=== PATIENT | male | born 1960 | race Asian ===

== ENCOUNTER 2018-04-25 10:35 | Day surgery (SDC) | payer OTHER ==
[~2018-04-25 10:35] MED LIST: DEXAMETHASONE 4 MG/ML 1 ML INJ; LIDOCAINE 2% (SDV) 5 ML INJ; ONDANSETRON 4 MG INJ; PHENYLephrine (100 MCG/ML) 5ML SYG
[2018-04-25] MEDS ORDERED: LACTATED RINGER'S 1,000 ML IV* (11:00)
[2018-04-25] MEDS: TROPICAMIDE 1% 3 ML OPH OPER (11:25)
[2018-04-25] MEDS: PHENYLephrine 2.5% 15 ML OPH OPER (11:25)
[2018-04-25] MEDS: MOXIFLOXACIN 0.5% 3 ML OPH OPER (11:25)
[2018-04-25] MEDS: CYCLOPENTOLATE 1% 2 ML OPH OPER (11:25)
[2018-04-25] MEDS: DICLOFENAC 0.1% 2.5 ML OPH OPER (11:26)
[2018-04-25] MEDS: SOD CHLORIDE 0.9% 1,000 ML IV (11:26)
[2018-04-25] MEDS ORDERED: FENTAnyl 50 MCG/ML VIAL (12:09)
[2018-04-25] MEDS ORDERED: ROCURONIUM 50 MG INJ (12:09)
[2018-04-25] MEDS ORDERED: PROPOFOL 20 ML (12:09)
[2018-04-25] MEDS ORDERED: SUGAMMADEX SODIUM 200 MG/2 ML VIAL IV (12:10)
[2018-04-25] MEDS ORDERED: EPINEPHrine 1 MG INJ (12:13)
[2018-04-25] MEDS ORDERED: LIDOCAINE 1% (MPF) 10 ML INJ (12:13)
[2018-04-25] MEDS: LIDOCAINE 1% (MPF) 10 ML INJ INJ (12:45)
[2018-04-25] MEDS ORDERED: TRYPAN BLUE 0.5 ML SYG IO (12:51)
[2018-04-25] MEDS: TETRACAINE 0.5% 4 ML OPH OPER (13:00)
[2018-04-25] MEDS ORDERED: TETRACAINE 0.5% 4 ML OPH (13:18)
[2018-04-25] MEDS ORDERED: TOBRAMYCIN 0.3% 3.5 GM OPH OINT ×2 (13:27→13:28)
[2018-04-25] MEDS ORDERED: TOBRAMYCIN/DEXAMETH 3.5 GM OPH OINT (13:32)
[2018-04-25] MEDS: TOBRAMYCIN/DEXAMETH 3.5 GM OPH OINT LEFT EYE (13:41)
[2018-04-25] MEDS ORDERED: MOXIFLOXACIN 0.5% 3 ML OPH (13:52)
[2018-04-25] MEDS ORDERED: INSULIN ASPART [NOVOLOG] 3 ML PEN SC (14:00)
[2018-04-25] MEDS ORDERED: OXYCODONE/ACETAMINOPHEN (5/325) TAB PO ×2 (14:00)
[2018-04-25] MEDS ORDERED: FENTAnyl 50 MCG/ML VIAL IV ×3 (14:00)
[2018-04-25] MEDS ORDERED: ONDANSETRON 4 MG INJ IV (14:00)
[2018-04-25] MEDS ORDERED: ALBUTEROL 0.083% (NEB) 2.5 MG/3 ML AMP HHN (14:00)
[2018-04-25] MEDS ORDERED: LABETALOL HCL 20MG INJ IV (14:00)
[2018-04-25] MEDS ORDERED: MIDAZOLAM 1 MG/ML 2 ML INJ IV (14:00)
[2018-04-25] MEDS ORDERED: GLUCOSE GEL 15 GRAM TUBE PO ×2 (14:00)
[2018-04-25] MEDS ORDERED: GLUCOSE GEL 15 GRAM TUBE BUCCAL (14:00)
[2018-04-25] MEDS ORDERED: DIPHENHYDRAMINE 50 MG INJ IV (14:00)
[2018-04-25] MEDS ORDERED: MEPERIDINE 25 MG INJ IV (14:00)
[2018-04-25] MEDS ORDERED: KETOROLAC 30 MG INJ IV (14:00)
[2018-04-25] MEDS ORDERED: hydrALAzine 20 MG INJ IV (14:00)
[2018-04-25] MEDS ORDERED: HYDROmorphONE 1 MG/5 ML IV SYRINGE IV ×3 (14:00)
[2018-04-25] MEDS ORDERED: GLUCAGON 1 MG INJ IM (14:00)
[2018-04-25] MEDS ORDERED: EPHEDrine SULFATE 50 MG/5 ML SYG IV (14:00)
[2018-04-25] MEDS ORDERED: DEXTROSE 50% 50 ML SYRINGE IV ×2 (14:00)
== END 2018-04-25 15:28 | disposition home or self-care (01) ==
LOC: SDS 10:35
DX: H25.89 Other age-related cataract (principal); Z86.73 Personal history of transient ischemic attack (TIA), and cerebral infarction without residual deficits; I12.9 Hypertensive chronic kidney disease with stage 1 through stage 4 chronic kidney disease, or unspecified chronic kidney disease; N18.3 Chronic kidney disease, stage 3 (moderate); E78.5 Hyperlipidemia, unspecified; E13.22 Other specified diabetes mellitus with diabetic chronic kidney disease
CPT/HCPCS: 66984; 82962